=== PATIENT | male | born 1960 | race Caucasian/White ===

== ENCOUNTER → 2021-05-16 | Outpatient (CLI) | payer OTHER | LOC: M PLALAB 15:19 | PROVIDERS: ATTEND Psychiatry & Neurology Neurology | DX: G70.00 Myasthenia gravis without (acute) exacerbation (principal); H53.2 Diplopia ==

== ENCOUNTER → 2022-12-03 | Outpatient (CLI) | payer OTHER | LOC: M RAD 06:39 | PROVIDERS: ATTEND Nurse Practitioner Primary Care | DX: R06.00 Dyspnea, unspecified (principal) ==

== ENCOUNTER → 2023-03-04 | Outpatient (CLI) | payer OTHER | LOC: M CARPUL 08:04 | PROVIDERS: ATTEND Internal Medicine Pulmonary Disease | DX: R91.8 Other nonspecific abnormal finding of lung field (principal) ==

== ENCOUNTER → 2023-03-04 | Outpatient (CLI) | payer OTHER | LOC: M PLAIMG 08:47 | PROVIDERS: ATTEND Internal Medicine Pulmonary Disease | DX: R91.8 Other nonspecific abnormal finding of lung field (principal) ==

== ENCOUNTER → 2023-03-11 | Outpatient (CLI) | payer OTHER ==
[~2023-03-11] MED LIST: METHACHOLINE KIT INH ONE
== END ==
LOC: M CARPUL 07:28
PROVIDERS: ATTEND Internal Medicine Pulmonary Disease
DX: R91.8 Other nonspecific abnormal finding of lung field (principal)
CPT/HCPCS: 94070; J7674

== ENCOUNTER → 2023-10-08 | Outpatient (CLI) | payer OTHER | LOC: M PLAIMG 12:39 | PROVIDERS: ATTEND Internal Medicine Pulmonary Disease | DX: R91.8 Other nonspecific abnormal finding of lung field (principal) ==

== ENCOUNTER → 2024-02-26 | Outpatient (CLI) | payer OTHER | LOC: M PLAIMG 08:31 | PROVIDERS: ATTEND Nurse Practitioner Family | DX: N43.3 Hydrocele, unspecified (principal); K40.90 Unilateral inguinal hernia, without obstruction or gangrene, not specified as recurrent; K76.0 Fatty (change of) liver, not elsewhere classified; K80.20 Calculus of gallbladder without cholecystitis without obstruction; K57.30 Diverticulosis of large intestine without perforation or abscess without bleeding ==

== ENCOUNTER → 2024-12-24 | Outpatient (CLI) | payer OTHER | LOC: M PLAIMG 08:04 | PROVIDERS: ATTEND Internal Medicine Pulmonary Disease | DX: R91.8 Other nonspecific abnormal finding of lung field (principal) ==

== ENCOUNTER 2025-03-02 11:55 | Day surgery (SDC) | payer OTHER ==
[~2025-03-02] VITALS: Ht 177.8 cm; Wt 91.0 kg
[~2025-03-02 11:55] MED LIST changes: -METHACHOLINE KIT INH ONE; +ROSU5TAB49 PO; +TELM1TAB33 PO
[2025-03-02] MEDS: LR 1,000 ML IV SCH (12:35)
[2025-03-02] MEDS ORDERED: LIDOCAINE 2% 100 MG/5 ML SDV (FOR ANES.) As Ordered ONE (13:17)
[2025-03-02] MEDS ORDERED: MIDAZOLAM INJ 2 MG/2 ML VIAL As Ordered ONE (13:18)
[2025-03-02] MEDS: ceFAZolin SOD 2 GM IV ONCE IV ONE (14:00)
[2025-03-02] MEDS ORDERED: ACETAMINOPHEN 1000MG/100ML IV BAG As Ordered ONE (14:22)
[2025-03-02] MEDS ORDERED: ONDANSETRON 4MG/2ML VIAL As Ordered ONE (14:25)
[2025-03-02] MEDS: LIDOCAINE 1% SDV 30 ML VIAL As Ordered ONE (15:35)
[2025-03-02] MEDS ORDERED: dexAMETHasone 4 MG/ML 1 ML VIAL As Ordered ONE (15:37)
[2025-03-02] MEDS ORDERED: HYDROMORPHONE HCL 0.5 MG/0.5 ML SYRINGE IV PRN (15:50)
[2025-03-02] MEDS ORDERED: MORPHINE 4 MG/ML 1 ML VIAL IV PRN (15:50)
[2025-03-02] MEDS ORDERED: OXYC1TAB23 PO (16:11)
[2025-03-02] MEDS ORDERED: CEPH500C PO (16:11)
[2025-03-02] MEDS: ONDANSETRON 4MG/2ML VIAL IV STA (17:35)
[2025-03-02 18:10] VITALS: BP 140/89; TEMP 97; O2SAT 97
== END 2025-03-02 18:17 | disposition home or self-care (01) ==
LOC: M SDC 11:55
PROVIDERS: ATTEND Urology
DX: N43.3 Hydrocele, unspecified (principal); N50.3 Cyst of epididymis; I10 Essential (primary) hypertension; I34.0 Nonrheumatic mitral (valve) insufficiency; E78.5 Hyperlipidemia, unspecified; I34.1 Nonrheumatic mitral (valve) prolapse; Z79.899 Other long term (current) drug therapy; Z88.5 Allergy status to narcotic agent; R91.8 Other nonspecific abnormal finding of lung field
CPT/HCPCS: 54830; 55040; 88302; 88305; J0131; J0665; J0688; J1100; J2250; J2405; J3010